=== PATIENT | male | born 1985 | race Caucasian/White ===

== ENCOUNTER → 2016-10-17 | Outpatient (CLI) | payer OTHER ==
--- NOTE | 2016-10-17 15:39 | DIAGNOSTIC IMAGING REPORT ---
LUMBAR SPINE RADIOGRAPHS CLINICAL HISTORY: Wedge compression fracture of spine. COMPARISON: Lumbar spine radiographs September 03, 2016. FINDINGS: Alignment of lumbar spine is anatomic. Mild compression fractures involving the superior endplates of T11, T12, L1 and L2 are unchanged. No additional fractures are present. Disc spaces are preserved within the lumbar spine. Sacroiliac joints are intact. IMPRESSION: 1. No change in appearance of the old T11-L2 mild compression fractures. 2. No acute lumbar spine fracture or subluxation. Electronically signed by: Artur Humphrey M.D. 10/17/2016 3:37 PM Dictated Date/Time: 10/17/2016 3:35 PM
== END | disposition home or self-care (01) ==
LOC: C.RAD 15:08
PROVIDERS: ATTEND Neurological Surgery
DX: S22.080D Wedge compression fracture of T11-T12 vertebra, subsequent encounter for fracture with routine healing (principal); S32.010D Wedge compression fracture of first lumbar vertebra, subsequent encounter for fracture with routine healing; S32.020D Wedge compression fracture of second lumbar vertebra, subsequent encounter for fracture with routine healing; X58.XXXD Exposure to other specified factors, subsequent encounter